=== PATIENT | male | born 1960 | race Caucasian/White ===

== ENCOUNTER 2022-05-01 08:02 | Outpatient (CLI) | payer BC, SELFPAY ==
[2022-05-01 09:58] LABS: PSA Screen* < 0.06 ng/mL (0.10-4.00)
[2022-05-01 12:18] LABS: Albumin* 4.2 g/dL (3.3-5.0); Chloride* 109 mmol/L (96-114)
[2022-05-01 12:19] LABS: Potassium* 4.6 mmol/L (3.6-5.1); Sodium* 142 mmol/L (135-149)
[2022-05-01 12:21] LABS: Aspartate Amino Transferase* 31 U/L (12-35); Bilirubin Total* 0.7 mg/dL (0.1-1.5); Carbon Dioxide* 26 mmol/L (20-32); Creatinine* 1.1 mg/dL (0.5-1.5); Estimated Glomerular Filt Rate 75 ml/min; Total Protein* 6.4 g/dL (6.0-8.3)
[2022-05-01 12:22] LABS: Alanine Aminotransferase* 26 U/L (4-50); Alkaline Phosphatase* 103 U/L (40-150); Blood Urea Nitrogen* 18 mg/dL (7-30); Calcium* 9.1 mg/dL (8.4-10.6); Glucose* 96 mg/dL (60-115)
[2022-05-01 17:25] LABS: Cholesterol* 162 mg/dL (90-199); HDL Cholesterol* 34 mg/dL (>=40); LDL Cholesterol Calculated 115 mg/dL (<100); Triglycerides* 67 mg/dL (40-149)
== END 2022-05-01 08:03 | disposition home or self-care (01) ==
PROVIDERS: PCP Family Medicine; Visit Provider Family Medicine
DX: Z00.00 Encounter for general adult medical examination without abnormal findings (principal); R53.83 Other fatigue; Z85.46 Personal history of malignant neoplasm of prostate; Z13.6 Encounter for screening for cardiovascular disorders; Z12.5 Encounter for screening for malignant neoplasm of prostate
CPT/HCPCS: 80053; 80061; 84153; 84443

== ENCOUNTER 2023-05-07 08:32 | Outpatient (CLI) | payer MEDICARE, BC, SELFPAY | END 2023-05-07 08:33 | disposition home or self-care (01) | PROVIDERS: PCP Family Medicine; Visit Provider Family Medicine | DX: Z00.00 Encounter for general adult medical examination without abnormal findings (principal); I10 Essential (primary) hypertension; R53.83 Other fatigue; L40.9 Psoriasis, unspecified; M10.9 Gout, unspecified; Z12.5 Encounter for screening for malignant neoplasm of prostate; Z13.6 Encounter for screening for cardiovascular disorders; N52.9 Male erectile dysfunction, unspecified | CPT/HCPCS: 80048; 80061; 84153; 84443 ==

== ENCOUNTER 2023-08-27 08:21 | Outpatient (CLI) | payer MEDICARE, BC, SELFPAY | END 2023-08-27 08:22 | disposition home or self-care (01) | LOC: NFLDREF 08:23 | PROVIDERS: PCP Family Medicine; Visit Provider Family Medicine | DX: I10 Essential (primary) hypertension (principal) | CPT/HCPCS: 80048 ==

== ENCOUNTER 2024-05-08 07:49 | Outpatient (CLI) | payer MEDICARE, BC, SELFPAY | END 2024-05-08 07:50 | disposition home or self-care (01) | PROVIDERS: PCP Family Medicine; Visit Provider Family Medicine | DX: R73.03 Prediabetes (principal); I10 Essential (primary) hypertension; L40.9 Psoriasis, unspecified; C61 Malignant neoplasm of prostate; Z13.220 Encounter for screening for lipoid disorders | CPT/HCPCS: 80048; 80061; 84153; 84460; 85025 ==

== ENCOUNTER 2025-03-22 04:40 | Outpatient (CLI) | payer MEDICARE, BC, SELFPAY | END 2025-03-22 04:41 | disposition home or self-care (01) | LOC: NFLDREF 03-26 03:19 | PROVIDERS: PCP Family Medicine; Referring Provider Family Medicine; Visit Provider Nurse Practitioner Family | DX: R19.7 Diarrhea, unspecified (principal) | CPT/HCPCS: 87045; 87046; 87427; 87493 ==

== ENCOUNTER 2025-03-23 09:44 | Outpatient (CLI) | payer MEDICARE, BC, SELFPAY ==
[2025-03-28 00:08] LABS: Ova and Parasite, Fecal Negative (Negative)
== END 2025-03-23 09:45 | disposition home or self-care (01) ==
LOC: NFLDUCREF 09:45
PROVIDERS: PCP Family Medicine; Visit Provider Nurse Practitioner Family
DX: R19.7 Diarrhea, unspecified (principal)
CPT/HCPCS: 87177; 87209

== ENCOUNTER 2025-03-24 09:08 | Outpatient (CLI) | payer MEDICARE, BC, SELFPAY | END 2025-03-24 09:09 | disposition home or self-care (01) | PROVIDERS: PCP Family Medicine; Referring Provider Family Medicine; Visit Provider Nurse Practitioner Family | DX: R19.7 Diarrhea, unspecified (principal) | CPT/HCPCS: 87329 ==

== ENCOUNTER 2025-04-30 06:25 | Outpatient (CLI) | payer MEDICARE, BC, SELFPAY ==
--- NOTE | 2025-04-30 07:48 | P.ANES_ITS ---
Anesthesia Charges Start Date/Time Anesthesia Start Date: 04/30/25 Anesthesia Start Time: 07:20 Stop Date/Time Anesthesia Stop Date: 04/30/25 Anesthesia Stop Time: 07:46 Coding CPT Codes CPT Codes: IRMA LWR INTST NDSC NOS - [id number] ([id number]) P2 - PATIENT W/MILD SYST DISEASE, QK - TRIP FOLLOWER 2-4 CNCRNT ANES PROC, QX - ANESTHESIOLOGY CRNA SVC W/ MD MED DIRECTION
--- NOTE | 2025-04-30 07:48 | W.ANESCHARGE ---
Anesthesia Charges Start Date/Time Anesthesia Start Date: 04/30/25 Anesthesia Start Time: 07:20 Stop Date/Time Anesthesia Stop Date: 04/30/25 Anesthesia Stop Time: 07:46 Coding CPT Codes CPT Codes: IRMA LWR INTST NDSC NOS - [id number] ([id number]) P2 - PATIENT W/MILD SYST DISEASE, QK - NURSE AIDE 2-4 CNCRNT ANES PROC, QX - CAR VARNISHER SVC W/ MD MED DIRECTION
--- NOTE | 2025-04-30 09:11 | P.ANES_ITS ---
Anesthesia Charges Start Date/Time Anesthesia Start Date: 04/30/25 Anesthesia Start Time: 07:20 Stop Date/Time Anesthesia Stop Date: 04/30/25 Anesthesia Stop Time: 07:46 Coding CPT Codes CPT Codes: IRMA HARDING INTST NDSC NOS - [id number] ([id number]) P2 - PATIENT W/MILD SYST DISEASE, QX - WASHTUB WORKER SVC W/ MD MED DIRECTION, QK - SUPERVISOR REAL ESTATE OFFICE 2-4 CNCRNT ANERonda PROC
--- NOTE | 2025-04-30 09:11 | W.ANESCHARGE ---
Anesthesia Charges Start Date/Time Anesthesia Start Date: 04/30/25 Anesthesia Start Time: 07:20 Stop Date/Time Anesthesia Stop Date: 04/30/25 Anesthesia Stop Time: 07:46 Coding CPT Codes CPT Codes: IRMA HARDING INTST NDSC NOS - [id number] ([id number]) P2 - PATIENT W/MILD SYST DISEASE, QX - BILINGUAL CASE MANAGER SVC W/ MD MED DIRECTION, QK - LIEUTENANT GOVERNOR 2-4 CNCRNT ANERonda PROC
== END 2025-04-30 06:26 | disposition home or self-care (01) ==
LOC: OP CLINIC 06:29
PROVIDERS: PCP Family Medicine; Visit Provider Internal Medicine
DX: D12.2 Benign neoplasm of ascending colon (principal); K57.30 Diverticulosis of large intestine without perforation or abscess without bleeding; Z86.0100 Personal history of colon polyps, unspecified
CPT/HCPCS: 00811; 45380; J2704

== ENCOUNTER 2025-05-14 08:16 | Outpatient (CLI) | payer MEDICARE, BC, SELFPAY | END 2025-05-14 08:17 | disposition home or self-care (01) | PROVIDERS: PCP Family Medicine; Visit Provider Family Medicine | DX: I10 Essential (primary) hypertension (principal); Z13.9 Encounter for screening, unspecified; C61 Malignant neoplasm of prostate | CPT/HCPCS: 80048; 80061; G0103 ==